=== PATIENT | male | born 1960 | race Caucasian/White ===

== ENCOUNTER 2022-01-09 09:17 | Inpatient (IN) ==
[2022-01-09] MEDS ORDERED: Ipratropium/Albuterol Neb 3 ML IH SCH (18:00)
[2022-01-09] MEDS: Doxycycline 100 MG CAPSULE PO SCH (21:27)
[2022-01-09] MEDS: Lactulose Oral Soln 20 GM/30 ML UDC PO SCH (21:27)
[2022-01-09] MEDS: polyethylene glycoL 3350 17 GM POWD.PACK PO SCH (21:29)
[2022-01-09] MEDS: Ipratropium/Albuterol Neb 3 ML IH SCH (21:31)
[2022-01-10] MEDS: Ipratropium/Albuterol Neb 3 ML IH SCH ×4 (03:57→21:23)
[2022-01-10 05:25] LABS: Basophils % 0.2 %; Eosinophils % 0.1 %; Hematocrit 30.5 % (37.5-50.1); Hemoglobin 10.6 g/dL (12.9-16.9); Immature Granulocytes % 1.2 % (0-4); Lymphocytes % 7.1 %; Mean Corpuscular HGB Conc 34.8 g/dL (31.6-35.5); Mean Corpuscular Hemoglobin 35.2 pg (28.0-33.3); Mean Corpuscular Volume 101.3 fL (83.0-100.0); Mean Platelet Volume 12.2 fL (9.4-12.4); Monocytes # 1.2 K/mcL (0.0-1.3); Monocytes % 8.2 %; Red Blood Count 3.01 M/mcL (4.19-5.50); Red Cell Distribution Width 15.9 % (11.5-14.5); Segmented Neutrophils % 83.2 %; White Blood Count 14.4 K/mcL (4.3-11.1)
[2022-01-10 05:38] LABS: BUN/Creatinine Ratio 34 (6-26); Blood Urea Nitrogen 22 mg/dL (8-23); Calcium 9.4 mg/dL (8.6-10.3); Carbon Dioxide 34 mEq/L (23-29); Chloride 98 mEq/L (98-107); Glucose 136 mg/dL (70-105); Osmolality,Calculated 277 (280-300); Potassium 5.1 mEq/L (3.5-5.1); Sodium 131 mEq/L (136-145)
[2022-01-10 05:44] LABS: Platelet Count 66 K/mcL (140-400)
[2022-01-10] MEDS: *HR* Enoxaparin 40 MG/0.4 ML SYRINGE SQ SCH (05:52)
[2022-01-10] MEDS: Nicotine 21 MG PATCH.TD24 TD SCH (08:54)
[2022-01-10] MEDS: polyethylene glycoL 3350 17 GM POWD.PACK PO SCH ×2 (08:54→22:00)
[2022-01-10] MEDS: Aspirin Enteric Coated 81 MG Tablet PO SCH (08:55)
[2022-01-10] MEDS: Furosemide 20 MG TABLET PO SCH (08:55)
[2022-01-10] MEDS: Lactulose Oral Soln 20 GM/30 ML UDC PO SCH ×3 (08:55→22:00)
[2022-01-10] MEDS: Doxycycline 100 MG CAPSULE PO SCH ×2 (08:55→22:00)
[2022-01-10] MEDS: methylPREDNISolone 4 MG TABLET PO SCH (08:56)
[2022-01-10] MEDS ORDERED: Metoprolol XL (24 HR) Succ 25 MG TAB.ER.24H PO SCH (09:00)
[2022-01-10 17:15] LABS: Bilirubin,Urine Small (Negative); Blood,Urine Large (Negative); Clarity,Urine Cloudy (Clear); Color,Urine Red (Yellow); Glucose,Urine (UA) Normal (Normal); Ketones,Urine Negative (Negative); Leukocyte Esterase,Urine Negative (Negative); Nitrite,Urine Negative (Negative); Protein,Urine 100 mg/dL (Neg-Trace)
[2022-01-10 17:19] LABS: RBC,Urine TNTC per hpf (0-3)
[2022-01-10 17:20] LABS: Bacteria,Urine Few per hpf (None-Few); WBC,Urine 15-30 per hpf (0-3)
[2022-01-11] MEDS: Ipratropium/Albuterol Neb 3 ML IH SCH ×4 (03:46→21:39)
[2022-01-11 06:08] LABS: Basophils % 0.1 %; Eosinophils % 0.1 %; Hematocrit 30.3 % (37.5-50.1); Hemoglobin 10.5 g/dL (12.9-16.9); Immature Granulocytes % 1.5 % (0-4); Lymphocytes % 6.9 %; Mean Corpuscular HGB Conc 34.7 g/dL (31.6-35.5); Mean Corpuscular Hemoglobin 35.4 pg (28.0-33.3); Mean Platelet Volume 12.9 fL (9.4-12.4); Monocytes # 1.2 K/mcL (0.0-1.3); Monocytes % 8.1 %; Neutrophils # 12.6 K/mcL (1.6-8.9); Red Blood Count 2.97 M/mcL (4.19-5.50); Red Cell Distribution Width 16.1 % (11.5-14.5); Segmented Neutrophils % 83.3 %; White Blood Count 15.1 K/mcL (4.3-11.1)
[2022-01-11 06:14] LABS: INR 2.2; Prothrombin Time 23.9 Seconds (9.4-12.1)
[2022-01-11 06:28] LABS: Alanine Aminotransferase 48 Units/L (7-52); Albumin 2.4 g/dL (3.5-5.7); Albumin/Globulin Ratio 0.9 (1.1-2.2); Alkaline Phosphatase 166 Units/L (34-104); Aspartate Amino Transferase 53 Units/L (13-39); BUN/Creatinine Ratio 29 (6-26); Bilirubin,Total 9.1 mg/dL (0.3-1.0); Blood Urea Nitrogen 22 mg/dL (8-23); Calcium 9.2 mg/dL (8.6-10.3); Carbon Dioxide 36 mEq/L (23-29); Chloride 94 mEq/L (98-107); Globulin 2.8 g/dL (2.4-3.5); Glucose 158 mg/dL (70-105); Osmolality,Calculated 273 (280-300); Potassium 4.7 mEq/L (3.5-5.1); Sodium 128 mEq/L (136-145); Total Protein 5.2 g/dL (6.4-8.9)
[2022-01-11 07:13] LABS: Platelet Count 74 K/mcL (140-400)
[2022-01-11] MEDS: *HR* Enoxaparin 40 MG/0.4 ML SYRINGE SQ SCH (07:27)
[2022-01-11 09:02] LABS: Platelet Estimate Decreased (Normal)
[2022-01-11] MEDS: methylPREDNISolone 4 MG TABLET PO SCH (10:46)
[2022-01-11] MEDS: Doxycycline 100 MG CAPSULE PO SCH ×2 (10:47→22:03)
[2022-01-11] MEDS: Lactulose Oral Soln 20 GM/30 ML UDC PO SCH ×3 (10:48→22:03)
[2022-01-11] MEDS: Aspirin Enteric Coated 81 MG Tablet PO SCH (10:48)
[2022-01-11] MEDS: Furosemide 20 MG TABLET PO SCH (10:48)
[2022-01-11] MEDS: polyethylene glycoL 3350 17 GM POWD.PACK PO SCH ×2 (10:49→22:04)
[2022-01-11] MEDS: Nicotine 21 MG PATCH.TD24 TD SCH (10:49)
[2022-01-12] MEDS: Ipratropium/Albuterol Neb 3 ML IH SCH ×4 (03:32→21:34)
[2022-01-12] MEDS: *HR* Enoxaparin 40 MG/0.4 ML SYRINGE SQ SCH (05:57)
[2022-01-12] MEDS: Nicotine 21 MG PATCH.TD24 TD SCH (09:50)
[2022-01-12] MEDS: polyethylene glycoL 3350 17 GM POWD.PACK PO SCH ×2 (09:50→21:28)
[2022-01-12] MEDS: Lactulose Oral Soln 20 GM/30 ML UDC PO SCH ×3 (09:51→21:28)
[2022-01-12] MEDS: Aspirin Enteric Coated 81 MG Tablet PO SCH (09:56)
[2022-01-12] MEDS: Doxycycline 100 MG CAPSULE PO SCH ×2 (09:56→21:28)
[2022-01-12] MEDS: Furosemide 20 MG TABLET PO SCH (09:57)
[2022-01-12] MEDS: methylPREDNISolone 4 MG TABLET PO SCH (17:04)
[2022-01-13] MEDS: Ipratropium/Albuterol Neb 3 ML IH SCH ×4 (03:27→20:03)
[2022-01-13 05:01] LABS: Basophils % 0.3 %; Hematocrit 30.1 % (37.5-50.1); Hemoglobin 10.7 g/dL (12.9-16.9); Immature Granulocytes % 3.6 % (0-4); Lymphocytes # 0.7 K/mcL (0.6-4.6); Lymphocytes % 5.7 %; Mean Corpuscular HGB Conc 35.5 g/dL (31.6-35.5); Mean Corpuscular Volume 101.3 fL (83.0-100.0); Mean Platelet Volume 13.1 fL (9.4-12.4); Monocytes # 0.6 K/mcL (0.0-1.3); Monocytes % 4.9 %; Neutrophils # 9.9 K/mcL (1.6-8.9); Red Blood Count 2.97 M/mcL (4.19-5.50); Red Cell Distribution Width 16.8 % (11.5-14.5); Segmented Neutrophils % 85.5 %; White Blood Count 11.6 K/mcL (4.3-11.1)
[2022-01-13 05:10] LABS: Platelet Count 95 K/mcL (140-400)
[2022-01-13 05:11] LABS: Platelet Estimate Decreased (Normal)
[2022-01-13 05:13] LABS: BUN/Creatinine Ratio 38 (6-26); Blood Urea Nitrogen 30 mg/dL (8-23); Carbon Dioxide 35 mEq/L (23-29); Chloride 96 mEq/L (98-107); Glucose 176 mg/dL (70-105); Osmolality,Calculated 282 (280-300); Potassium 4.7 mEq/L (3.5-5.1); Sodium 131 mEq/L (136-145)
[2022-01-13] MEDS: Furosemide 20 MG TABLET PO SCH (08:11)
[2022-01-13] MEDS: Aspirin Enteric Coated 81 MG Tablet PO SCH (08:12)
[2022-01-13] MEDS: methylPREDNISolone 4 MG TABLET PO SCH (08:17)
[2022-01-13] MEDS: Lactulose Oral Soln 20 GM/30 ML UDC PO SCH ×3 (08:19→21:05)
[2022-01-13] MEDS: Nicotine 21 MG PATCH.TD24 TD SCH (10:18)
[2022-01-13] MEDS: polyethylene glycoL 3350 17 GM POWD.PACK PO SCH (10:18)
[2022-01-13] MEDS ORDERED: polyethylene glycoL 3350 17 GM POWD.PACK PO PRN (11:21)
[2022-01-13] MEDS: Doxycycline 100 MG CAPSULE PO SCH ×2 (15:16→21:05)
[2022-01-14] MEDS: Ipratropium/Albuterol Neb 3 ML IH SCH ×4 (03:32→20:33)
[2022-01-14] MEDS: Lactulose Oral Soln 20 GM/30 ML UDC PO SCH ×3 (09:52→19:44)
[2022-01-14] MEDS: Aspirin Enteric Coated 81 MG Tablet PO SCH (09:53)
[2022-01-14] MEDS: Furosemide 20 MG TABLET PO SCH (09:53)
[2022-01-14] MEDS: methylPREDNISolone 4 MG TABLET PO SCH (09:54)
[2022-01-14] MEDS: Nicotine 21 MG PATCH.TD24 TD SCH (09:58)
[2022-01-15] MEDS: Ipratropium/Albuterol Neb 3 ML IH SCH ×4 (03:51→20:54)
[2022-01-15] MEDS: Nicotine 21 MG PATCH.TD24 TD SCH (09:31)
[2022-01-15] MEDS: Lactulose Oral Soln 20 GM/30 ML UDC PO SCH ×3 (09:36→19:35)
[2022-01-15] MEDS: Aspirin Enteric Coated 81 MG Tablet PO SCH (09:36)
[2022-01-15] MEDS: Furosemide 20 MG TABLET PO SCH (09:37)
[2022-01-15] MEDS: methylPREDNISolone 4 MG TABLET PO SCH (09:37)
[2022-01-16] MEDS: Ipratropium/Albuterol Neb 3 ML IH SCH ×4 (03:40→20:03)
[2022-01-16 05:31] LABS: Hematocrit 31.4 % (37.5-50.1); Hemoglobin 10.8 g/dL (12.9-16.9); Mean Corpuscular HGB Conc 34.4 g/dL (31.6-35.5); Mean Corpuscular Hemoglobin 35.6 pg (28.0-33.3); Mean Corpuscular Volume 103.6 fL (83.0-100.0); Mean Platelet Volume 12.3 fL (9.4-12.4); Platelet Count 103 K/mcL (140-400); Red Blood Count 3.03 M/mcL (4.19-5.50); Red Cell Distribution Width 17.2 % (11.5-14.5); White Blood Count 13.7 K/mcL (4.3-11.1)
[2022-01-16 05:47] LABS: Alanine Aminotransferase 58 Units/L (7-52); Albumin 2.3 g/dL (3.5-5.7); Albumin/Globulin Ratio 0.9 (1.1-2.2); Alkaline Phosphatase 177 Units/L (34-104); Aspartate Amino Transferase 52 Units/L (13-39); BUN/Creatinine Ratio 32 (6-26); Bilirubin,Total 7.8 mg/dL (0.3-1.0); Blood Urea Nitrogen 26 mg/dL (8-23); Calcium 8.6 mg/dL (8.6-10.3); Carbon Dioxide 32 mEq/L (23-29); Chloride 100 mEq/L (98-107); Globulin 2.6 g/dL (2.4-3.5); Glucose 158 mg/dL (70-105); Magnesium 1.9 mg/dL (1.6-2.6); Osmolality,Calculated 284 (280-300); Potassium 4.3 mEq/L (3.5-5.1); Sodium 133 mEq/L (136-145); Total Protein 4.9 g/dL (6.4-8.9)
[2022-01-16] MEDS: Lactulose Oral Soln 20 GM/30 ML UDC PO SCH ×3 (08:51→20:45)
[2022-01-16] MEDS: Furosemide 20 MG TABLET PO SCH (08:52)
[2022-01-16] MEDS: Nicotine 21 MG PATCH.TD24 TD SCH (08:52)
[2022-01-16] MEDS: methylPREDNISolone 4 MG TABLET PO SCH (08:52)
[2022-01-16] MEDS: Aspirin Enteric Coated 81 MG Tablet PO SCH (08:53)
[2022-01-17] MEDS: Ipratropium/Albuterol Neb 3 ML IH SCH ×3 (03:32→17:30)
[2022-01-17 07:29] VITALS: BP 118/70; PULSE 80; TEMP 97.6
[2022-01-17] MEDS: Lactulose Oral Soln 20 GM/30 ML UDC PO SCH (08:58)
[2022-01-17] MEDS: methylPREDNISolone 4 MG TABLET PO SCH (09:00)
[2022-01-17] MEDS: Aspirin Enteric Coated 81 MG Tablet PO SCH (09:01)
[2022-01-17] MEDS: Nicotine 21 MG PATCH.TD24 TD SCH (09:01)
[2022-01-17] MEDS: Furosemide 20 MG TABLET PO SCH (09:01)
[2022-01-17 10:22] VITALS: RESP 19; O2SAT 95
[2022-01-24] MEDS ORDERED: methylPREDNISolone 4 MG TABLET PO SCH (09:00)
== END 2022-01-17 19:13 | disposition home health service (06) | DRG 432 ==
LOC: INPGRE 15:39
PROVIDERS: ADMIT Family Medicine; ATTEND Family Medicine

== ENCOUNTER 2022-02-10 17:37 | Inpatient (IN) ==
[2022-02-10] MEDS ORDERED: Furosemide 40 MG/4 ML VIAL IVP ONE (17:45)
[2022-02-10] MEDS ORDERED: *HR* Heparin 5,000 UNIT/ML VIAL IVP ONE (17:46)
[2022-02-10] MEDS ORDERED: *HR* Heparin 5,000 UNIT/ML VIAL IVP PRN ×2 (17:46)
[2022-02-10] MEDS ORDERED: Heparin 25,000UNIT/250ML 1/2NS 25,000 UNIT/250 ML IV.SOLN IVC SCH (18:00)
[2022-02-10] MEDS ORDERED: Ipratropium/Albuterol Neb 3 ML IH ONE (18:53)
[2022-02-10 18:55] LABS: Basophils % 0.5 %; Eosinophils # 0.1 K/mcL (0.0-0.6); Eosinophils % 0.9 %; Hematocrit 37.1 % (37.5-50.1); Hemoglobin 12.3 g/dL (12.9-16.9); Immature Granulocytes % 0.7 % (0-4); Lymphocytes # 1.4 K/mcL (0.6-4.6); Lymphocytes % 23.9 %; Mean Corpuscular HGB Conc 33.2 g/dL (31.6-35.5); Mean Corpuscular Hemoglobin 36.1 pg (28.0-33.3); Mean Corpuscular Volume 108.8 fL (83.0-100.0); Mean Platelet Volume 11.2 fL (9.4-12.4); Monocytes # 0.7 K/mcL (0.0-1.3); Neutrophils # 3.6 K/mcL (1.6-8.9); Red Blood Count 3.41 M/mcL (4.19-5.50); Red Cell Distribution Width 14.1 % (11.5-14.5); White Blood Count 5.9 K/mcL (4.3-11.1)
[2022-02-10 19:01] LABS: Platelet Count 53 K/mcL (140-400)
[2022-02-10 19:02] LABS: Platelet Estimate Decreased (Normal)
[2022-02-10 19:14] LABS: Alanine Aminotransferase 52 Units/L (7-52); Albumin 2.8 g/dL (3.5-5.7); Albumin/Globulin Ratio 1.3 (1.1-2.2); Alkaline Phosphatase 165 Units/L (34-104); Aspartate Amino Transferase 55 Units/L (13-39); BUN/Creatinine Ratio 25 (6-26); Bilirubin,Total 9.2 mg/dL (0.3-1.0); Blood Urea Nitrogen 17 mg/dL (8-23); Calcium 8.6 mg/dL (8.6-10.3); Carbon Dioxide 45 mEq/L (23-29); Chloride 88 mEq/L (98-107); Globulin 2.1 g/dL (2.4-3.5); Glucose 187 mg/dL (70-105); Osmolality,Calculated 280 (280-300); Potassium 5.3 mEq/L (3.5-5.1); Sodium 132 mEq/L (136-145); Total Protein 4.9 g/dL (6.4-8.9)
[2022-02-10] MEDS ORDERED: Melatonin 3 MG TABLET PO PRN (21:22)
[2022-02-10] MEDS ORDERED: Acetaminophen 325 MG TABLET PO PRN (21:22)
[2022-02-10] MEDS ORDERED: Ondansetron ODT 4 MG TAB.RAPDIS SL PRN (21:22)
[2022-02-10] MEDS ORDERED: Naloxone 0.4 MG/ML INJ IVP PRN (21:22)
[2022-02-10] MEDS ORDERED: *HR* LORazepam 0.5 MG TABLET PO ONE (21:29)
[2022-02-11] MEDS: Ipratropium/Albuterol Neb 3 ML IH SCH ×7 (00:25→23:15)
[2022-02-11 05:01] LABS: Basophils # 0.1 K/mcL (0.0-0.2); Basophils % 0.8 %; Eosinophils # 0.1 K/mcL (0.0-0.6); Eosinophils % 1.6 %; Hematocrit 36.7 % (37.5-50.1); Immature Granulocytes % 0.5 % (0-4); Lymphocytes # 2.2 K/mcL (0.6-4.6); Mean Corpuscular HGB Conc 32.7 g/dL (31.6-35.5); Mean Corpuscular Hemoglobin 35.2 pg (28.0-33.3); Mean Corpuscular Volume 107.6 fL (83.0-100.0); Mean Platelet Volume 11.2 fL (9.4-12.4); Monocytes # 1.1 K/mcL (0.0-1.3); Monocytes % 14.4 %; Red Blood Count 3.41 M/mcL (4.19-5.50); Red Cell Distribution Width 14.2 % (11.5-14.5); Segmented Neutrophils % 53.7 %; White Blood Count 7.5 K/mcL (4.3-11.1)
[2022-02-11 05:04] LABS: Prothrombin Time 22.2 Seconds (9.4-12.1)
[2022-02-11 05:09] LABS: Platelet Count 53 K/mcL (140-400); Platelet Estimate Decreased (Normal)
[2022-02-11 05:13] LABS: VBG HCO3 37 mEq/L (21-27); VBG PCO2 61 mmHg (41-51); VBG PH 7.39 pH Units (7.32-7.42); VBG PO2 40 mmHg (25-50)
[2022-02-11 05:19] LABS: Alanine Aminotransferase 49 Units/L (7-52); Albumin 2.7 g/dL (3.5-5.7); Albumin/Globulin Ratio 1.4 (1.1-2.2); Alkaline Phosphatase 167 Units/L (34-104); Aspartate Amino Transferase 43 Units/L (13-39); BUN/Creatinine Ratio 26 (6-26); Bilirubin,Total 8.7 mg/dL (0.3-1.0); Blood Urea Nitrogen 18 mg/dL (8-23); Calcium 8.8 mg/dL (8.6-10.3); Carbon Dioxide 45 mEq/L (23-29); Chloride 89 mEq/L (98-107); Glucose 139 mg/dL (70-105); Magnesium 1.7 mg/dL (1.6-2.6); Osmolality,Calculated 282 (280-300); Potassium 5.2 mEq/L (3.5-5.1); Sodium 134 mEq/L (136-145); Total Protein 4.7 g/dL (6.4-8.9)
[2022-02-11] MEDS ORDERED: Insulin Human Regular 10 UNIT in 0.9 % Sodium Chloride 10 ML IV ONE (07:04)
[2022-02-11] MEDS ORDERED: Calcium Gluconate 1gm/50mL 1 GM/50 ML BAG IVPB ONE (07:04)
[2022-02-11] MEDS ORDERED: *HR* Dextrose 50 % in Water (Syg) 50 ML SYRINGE IVP ONE (07:05)
[2022-02-11] MEDS: Budesonide/Formoterol 160/4.5 1 PUFF INH IH SCH ×2 (08:05→20:22)
[2022-02-11] MEDS: Lactulose Oral Soln 20 GM/30 ML UDC PO SCH ×3 (08:53→20:02)
[2022-02-11] MEDS ORDERED: Furosemide 20 MG TABLET PO SCH (09:00)
[2022-02-11] MEDS: Aspirin Enteric Coated 81 MG Tablet PO SCH (09:04)
[2022-02-11] MEDS: SODIUM ZIRCONIUM CYCLOSILICATE 5 GM POWD.PACK PO SCH ×2 (09:06→14:33)
[2022-02-11] MEDS: Chlorhexidine Rinse 15 ML MOUTHWASH MM SCH ×2 (09:07→19:59)
[2022-02-11] MEDS: Vitamin B Complex/Vit C/Vit E 1 EACH TABLET PO SCH (09:08)
[2022-02-11] MEDS: Nicotine 14 MG PATCH.TD24 TD SCH (09:08)
[2022-02-11] MEDS: Furosemide 20 MG TABLET PO SCH (19:59)
[2022-02-12] MEDS: Ipratropium/Albuterol Neb 3 ML IH SCH ×5 (04:24→21:42)
[2022-02-12] MEDS: Budesonide/Formoterol 160/4.5 1 PUFF INH IH SCH ×2 (07:28→21:43)
[2022-02-12 08:51] LABS: Basophils # 0.1 K/mcL (0.0-0.2); Basophils % 0.8 %; Eosinophils # 0.1 K/mcL (0.0-0.6); Eosinophils % 0.8 %; Hematocrit 35.6 % (37.5-50.1); Hemoglobin 11.7 g/dL (12.9-16.9); Immature Granulocytes % 0.5 % (0-4); Lymphocytes # 2.4 K/mcL (0.6-4.6); Lymphocytes % 31.4 %; Mean Corpuscular HGB Conc 32.9 g/dL (31.6-35.5); Mean Corpuscular Hemoglobin 35.7 pg (28.0-33.3); Mean Corpuscular Volume 108.5 fL (83.0-100.0); Mean Platelet Volume 10.6 fL (9.4-12.4); Monocytes # 0.9 K/mcL (0.0-1.3); Monocytes % 11.2 %; Neutrophils # 4.2 K/mcL (1.6-8.9); Red Blood Count 3.28 M/mcL (4.19-5.50); Red Cell Distribution Width 14.7 % (11.5-14.5); Segmented Neutrophils % 55.3 %; White Blood Count 7.6 K/mcL (4.3-11.1)
[2022-02-12 08:53] LABS: Platelet Count 49 K/mcL (140-400)
[2022-02-12] MEDS ORDERED: SODIUM ZIRCONIUM CYCLOSILICATE 5 GM POWD.PACK PO SCH (09:00)
[2022-02-12 09:10] LABS: BUN/Creatinine Ratio 20 (6-26); Blood Urea Nitrogen 18 mg/dL (8-23); Calcium 8.9 mg/dL (8.6-10.3); Carbon Dioxide 41 mEq/L (23-29); Chloride 88 mEq/L (98-107); Glucose 210 mg/dL (70-105); Osmolality,Calculated 286 (280-300); Potassium 3.8 mEq/L (3.5-5.1); Sodium 134 mEq/L (136-145)
[2022-02-12] MEDS: Chlorhexidine Rinse 15 ML MOUTHWASH MM SCH ×2 (11:41→21:21)
[2022-02-12] MEDS: Lactulose Oral Soln 20 GM/30 ML UDC PO SCH ×5 (11:41→21:19)
[2022-02-12] MEDS: acetaZOLAMIDE 250 MG TABLET PO SCH ×2 (11:42→21:19)
[2022-02-12] MEDS: Aspirin Enteric Coated 81 MG Tablet PO SCH (11:43)
[2022-02-12] MEDS: Vitamin B Complex/Vit C/Vit E 1 EACH TABLET PO SCH (11:43)
[2022-02-12] MEDS: Furosemide 20 MG TABLET PO SCH ×2 (11:43→17:54)
[2022-02-12] MEDS: Nicotine 14 MG PATCH.TD24 TD SCH (11:44)
[2022-02-13] MEDS: Ipratropium/Albuterol Neb 3 ML IH SCH ×6 (00:10→19:02)
[2022-02-13 05:53] LABS: Hematocrit 34.1 % (37.5-50.1); Hemoglobin 11.2 g/dL (12.9-16.9); Mean Corpuscular HGB Conc 32.8 g/dL (31.6-35.5); Mean Corpuscular Hemoglobin 35.9 pg (28.0-33.3); Mean Corpuscular Volume 109.3 fL (83.0-100.0); Mean Platelet Volume 11.3 fL (9.4-12.4); Platelet Count 54 K/mcL (140-400); Red Blood Count 3.12 M/mcL (4.19-5.50); Red Cell Distribution Width 14.6 % (11.5-14.5); White Blood Count 8.5 K/mcL (4.3-11.1)
[2022-02-13 06:59] LABS: Alanine Aminotransferase 50 Units/L (7-52); Albumin 2.4 g/dL (3.5-5.7); Albumin/Globulin Ratio 1.2 (1.1-2.2); Alkaline Phosphatase 180 Units/L (34-104); Aspartate Amino Transferase 51 Units/L (13-39); BUN/Creatinine Ratio 20 (6-26); Bilirubin,Total 6.3 mg/dL (0.3-1.0); Blood Urea Nitrogen 18 mg/dL (8-23); Calcium 9.1 mg/dL (8.6-10.3); Carbon Dioxide 42 mEq/L (23-29); Chloride 95 mEq/L (98-107); Glucose 136 mg/dL (70-105); Magnesium 1.8 mg/dL (1.6-2.6); Osmolality,Calculated 290 (280-300); Potassium 4.2 mEq/L (3.5-5.1); Sodium 138 mEq/L (136-145); Total Protein 4.4 g/dL (6.4-8.9)
[2022-02-13] MEDS: Budesonide/Formoterol 160/4.5 1 PUFF INH IH SCH ×2 (07:34→19:04)
[2022-02-13] MEDS: Aspirin Enteric Coated 81 MG Tablet PO SCH (09:26)
[2022-02-13] MEDS: Vitamin B Complex/Vit C/Vit E 1 EACH TABLET PO SCH (09:26)
[2022-02-13] MEDS: Chlorhexidine Rinse 15 ML MOUTHWASH MM SCH ×2 (09:26→21:26)
[2022-02-13] MEDS: Nicotine 14 MG PATCH.TD24 TD SCH (09:27)
[2022-02-13] MEDS: Lactulose Oral Soln 20 GM/30 ML UDC PO SCH ×4 (09:27→21:24)
[2022-02-13] MEDS: Furosemide 20 MG TABLET PO SCH ×2 (09:29→16:35)
[2022-02-13] MEDS: acetaZOLAMIDE 250 MG TABLET PO SCH ×2 (09:29→21:27)
[2022-02-13] MEDS ORDERED: 0.9 % Sodium Chloride 500 ML IVC PRN (20:46)
[2022-02-13] MEDS ORDERED: 0.9 % Sodium Chloride 500 ML IVC SCH (21:00)
[2022-02-13] MEDS ORDERED: 0.9 % Sodium Chloride 500 ML IVC ONE (21:45)
[2022-02-14] MEDS: Ipratropium/Albuterol Neb 3 ML IH SCH ×6 (00:22→22:41)
[2022-02-14 07:14] LABS: Hematocrit 33.7 % (37.5-50.1); Hemoglobin 10.9 g/dL (12.9-16.9); Mean Corpuscular HGB Conc 32.3 g/dL (31.6-35.5); Mean Corpuscular Volume 111.2 fL (83.0-100.0); Mean Platelet Volume 11.4 fL (9.4-12.4); Red Blood Count 3.03 M/mcL (4.19-5.50); Red Cell Distribution Width 14.6 % (11.5-14.5); White Blood Count 8.5 K/mcL (4.3-11.1)
[2022-02-14 07:15] LABS: Platelet Count 51 K/mcL (140-400)
[2022-02-14] MEDS: Budesonide/Formoterol 160/4.5 1 PUFF INH IH SCH ×2 (07:45→22:42)
[2022-02-14] MEDS: Lactulose Oral Soln 20 GM/30 ML UDC PO SCH ×4 (08:08→20:44)
[2022-02-14] MEDS: Aspirin Enteric Coated 81 MG Tablet PO SCH (08:08)
[2022-02-14] MEDS: Vitamin B Complex/Vit C/Vit E 1 EACH TABLET PO SCH (08:09)
[2022-02-14] MEDS: Furosemide 20 MG TABLET PO SCH ×2 (08:09→17:01)
[2022-02-14] MEDS: Nicotine 14 MG PATCH.TD24 TD SCH (08:09)
[2022-02-14] MEDS: acetaZOLAMIDE 250 MG TABLET PO SCH ×2 (08:09→10:43)
[2022-02-14] MEDS: Chlorhexidine Rinse 15 ML MOUTHWASH MM SCH ×2 (08:09→20:45)
[2022-02-14 09:59] LABS: Alanine Aminotransferase 51 Units/L (7-52); Albumin 2.3 g/dL (3.5-5.7); Albumin/Globulin Ratio 1.1 (1.1-2.2); Alkaline Phosphatase 189 Units/L (34-104); Aspartate Amino Transferase 48 Units/L (13-39); BUN/Creatinine Ratio 24 (6-26); Blood Urea Nitrogen 21 mg/dL (8-23); Calcium 8.8 mg/dL (8.6-10.3); Carbon Dioxide 40 mEq/L (23-29); Chloride 98 mEq/L (98-107); Globulin 2.1 g/dL (2.4-3.5); Glucose 152 mg/dL (70-105); Magnesium 1.8 mg/dL (1.6-2.6); Osmolality,Calculated 298 (280-300); Potassium 4.4 mEq/L (3.5-5.1); Sodium 141 mEq/L (136-145); Total Protein 4.4 g/dL (6.4-8.9)
[2022-02-14 15:42] LABS: Bilirubin,Urine Small (Negative); Blood,Urine Negative (Negative); Clarity,Urine Clear (Clear); Color,Urine Orange (Yellow); Glucose,Urine (UA) Normal (Normal); Ketones,Urine Trace mg/dL (Negative); Leukocyte Esterase,Urine Negative (Negative); Nitrite,Urine Negative (Negative); Protein,Urine Trace mg/dL (Neg-Trace); Specific Gravity,Urine 1.025 (1.010-1.025)
[2022-02-14 16:24] LABS: Amorphous Sediment,Urine Moderate per hpf (None-Few); Bacteria,Urine Many per hpf (None-Few); WBC,Urine 15-30 per hpf (0-3)
[2022-02-14 17:02] LABS: Basophils # 0.1 K/mcL (0.0-0.2); Basophils % 0.7 %; Eosinophils # 0.1 K/mcL (0.0-0.6); Eosinophils % 1.1 %; Hemoglobin 10.4 g/dL (12.9-16.9); Immature Granulocytes % 0.6 % (0-4); Lymphocytes # 1.7 K/mcL (0.6-4.6); Lymphocytes % 20.9 %; Mean Corpuscular HGB Conc 31.5 g/dL (31.6-35.5); Mean Corpuscular Hemoglobin 35.5 pg (28.0-33.3); Mean Corpuscular Volume 112.6 fL (83.0-100.0); Mean Platelet Volume 11.4 fL (9.4-12.4); Monocytes # 1.2 K/mcL (0.0-1.3); Monocytes % 14.2 %; Neutrophils # 5.2 K/mcL (1.6-8.9); Red Blood Count 2.93 M/mcL (4.19-5.50); Red Cell Distribution Width 14.8 % (11.5-14.5); Segmented Neutrophils % 62.5 %; White Blood Count 8.3 K/mcL (4.3-11.1)
[2022-02-14 17:05] LABS: Platelet Count 54 K/mcL (140-400)
[2022-02-14 17:28] LABS: Calcium 8.9 mg/dL (8.6-10.3); Potassium 3.9 mEq/L (3.5-5.1)
[2022-02-14] MEDS: 0.9 % Sodium Chloride 1,000 ML IVC SCH (17:49)
[2022-02-14 18:56] LABS: ABG Base Excess 11 mEq/L (-2 to 3); ABG HCO3 42 mEq/L (21-27); ABG Oxygen Saturation 96 % (95-98); ABG PCO2 96 mmHg (35-45); ABG PH 7.25 pH Units (7.32-7.45); ABG PO2 101 mmHg (85-104); ABG TCO2 45 mEq/L (20-26)
[2022-02-15] MEDS: Lactulose Oral Soln 20 GM/30 ML UDC PO SCH ×6 (00:16→20:27)
[2022-02-15] MEDS: 0.9 % Sodium Chloride 1,000 ML IVC SCH (03:58)
[2022-02-15] MEDS: Ipratropium/Albuterol Neb 3 ML IH SCH ×4 (05:14→19:49)
[2022-02-15 07:36] LABS: Basophils # 0.1 K/mcL (0.0-0.2); Basophils % 0.8 %; Eosinophils # 0.1 K/mcL (0.0-0.6); Eosinophils % 1.7 %; Hematocrit 35.5 % (37.5-50.1); Hemoglobin 11.5 g/dL (12.9-16.9); Immature Granulocytes % 0.8 % (0-4); Lymphocytes # 1.2 K/mcL (0.6-4.6); Lymphocytes % 19.1 %; Mean Corpuscular HGB Conc 32.4 g/dL (31.6-35.5); Mean Corpuscular Hemoglobin 35.9 pg (28.0-33.3); Mean Corpuscular Volume 110.9 fL (83.0-100.0); Mean Platelet Volume 11.2 fL (9.4-12.4); Monocytes # 0.9 K/mcL (0.0-1.3); Monocytes % 14.8 %; Neutrophils # 3.8 K/mcL (1.6-8.9); Red Cell Distribution Width 14.6 % (11.5-14.5); Segmented Neutrophils % 62.8 %
[2022-02-15 08:04] LABS: Platelet Count 54 K/mcL (140-400)
[2022-02-15 08:08] LABS: Albumin 2.6 g/dL (3.5-5.7); Albumin/Globulin Ratio 1.2 (1.1-2.2); Bilirubin,Total 6.7 mg/dL (0.3-1.0); Globulin 2.2 g/dL (2.4-3.5); Magnesium 1.9 mg/dL (1.6-2.6); Potassium 4.1 mEq/L (3.5-5.1); Total Protein 4.8 g/dL (6.4-8.9)
[2022-02-15 09:44] LABS: Basophilic Stippling 1+ (Not Present); Platelet Estimate Decreased (Normal)
[2022-02-15] MEDS: Vitamin B Complex/Vit C/Vit E 1 EACH TABLET PO SCH (10:09)
[2022-02-15] MEDS: Chlorhexidine Rinse 15 ML MOUTHWASH MM SCH ×2 (10:09→20:28)
[2022-02-15] MEDS: Nicotine 14 MG PATCH.TD24 TD SCH ×2 (10:09→10:15)
[2022-02-15] MEDS: Aspirin Enteric Coated 81 MG Tablet PO SCH (10:09)
[2022-02-15] MEDS: Budesonide/Formoterol 160/4.5 1 PUFF INH IH SCH ×2 (11:56→19:49)
[2022-02-15] MEDS: levoFLOXacin 500 MG TABLET PO SCH (13:18)
[2022-02-15 15:03] LABS: ABG Base Excess 6 mEq/L (-2 to 3); ABG HCO3 35 mEq/L (21-27); ABG Oxygen Saturation 91 % (95-98); ABG PCO2 71 mmHg (35-45); ABG PO2 71 mmHg (85-104); ABG TCO2 37 mEq/L (20-26)
[2022-02-15] MEDS: acetaZOLAMIDE 250 MG TABLET PO SCH (20:27)
[2022-02-16] MEDS: Lactulose Oral Soln 20 GM/30 ML UDC PO SCH ×6 (00:36→20:46)
[2022-02-16] MEDS: Ipratropium/Albuterol Neb 3 ML IH SCH ×4 (04:16→21:31)
[2022-02-16 04:33] LABS: Hemoglobin 10.8 g/dL (12.9-16.9); Mean Corpuscular HGB Conc 32.7 g/dL (31.6-35.5); Mean Corpuscular Hemoglobin 35.6 pg (28.0-33.3); Mean Corpuscular Volume 108.9 fL (83.0-100.0); Mean Platelet Volume 10.3 fL (9.4-12.4); Red Blood Count 3.03 M/mcL (4.19-5.50); Red Cell Distribution Width 14.7 % (11.5-14.5)
[2022-02-16 04:52] LABS: Albumin 2.4 g/dL (3.5-5.7); Albumin/Globulin Ratio 1.2 (1.1-2.2); Bilirubin,Total 6.4 mg/dL (0.3-1.0); Calcium 8.8 mg/dL (8.6-10.3); Magnesium 1.9 mg/dL (1.6-2.6); Potassium 3.8 mEq/L (3.5-5.1); Total Protein 4.4 g/dL (6.4-8.9)
[2022-02-16 05:01] LABS: Platelet Count 53 K/mcL (140-400)
[2022-02-16] MEDS: Budesonide/Formoterol 160/4.5 1 PUFF INH IH SCH ×2 (08:04→21:34)
[2022-02-16] MEDS: Aspirin Enteric Coated 81 MG Tablet PO SCH (08:14)
[2022-02-16] MEDS: acetaZOLAMIDE 250 MG TABLET PO SCH ×2 (08:14→20:46)
[2022-02-16] MEDS: Vitamin B Complex/Vit C/Vit E 1 EACH TABLET PO SCH (08:14)
[2022-02-16] MEDS: levoFLOXacin 500 MG TABLET PO SCH (08:14)
[2022-02-16] MEDS: Nicotine 14 MG PATCH.TD24 TD SCH (08:16)
[2022-02-16] MEDS: Chlorhexidine Rinse 15 ML MOUTHWASH MM SCH ×2 (08:16→20:46)
[2022-02-17] MEDS: Lactulose Oral Soln 20 GM/30 ML UDC PO SCH ×8 (00:33→23:59)
[2022-02-17] MEDS: Ipratropium/Albuterol Neb 3 ML IH SCH ×4 (04:08→21:12)
[2022-02-17 05:05] LABS: Hematocrit 34.8 % (37.5-50.1); Hemoglobin 11.2 g/dL (12.9-16.9); Mean Corpuscular HGB Conc 32.2 g/dL (31.6-35.5); Mean Corpuscular Hemoglobin 35.3 pg (28.0-33.3); Mean Corpuscular Volume 109.8 fL (83.0-100.0); Mean Platelet Volume 11.5 fL (9.4-12.4); Red Blood Count 3.17 M/mcL (4.19-5.50); Red Cell Distribution Width 14.9 % (11.5-14.5); White Blood Count 5.5 K/mcL (4.3-11.1)
[2022-02-17 05:08] LABS: Platelet Count 50 K/mcL (140-400)
[2022-02-17 05:21] LABS: Albumin 2.4 g/dL (3.5-5.7); Albumin/Globulin Ratio 1.1 (1.1-2.2); Bilirubin,Total 5.3 mg/dL (0.3-1.0); Calcium 9.2 mg/dL (8.6-10.3); Globulin 2.2 g/dL (2.4-3.5); Potassium 3.8 mEq/L (3.5-5.1); Total Protein 4.6 g/dL (6.4-8.9)
[2022-02-17] MEDS: Budesonide/Formoterol 160/4.5 1 PUFF INH IH SCH ×2 (09:15→21:12)
[2022-02-17] MEDS: Vitamin B Complex/Vit C/Vit E 1 EACH TABLET PO SCH (09:21)
[2022-02-17] MEDS: acetaZOLAMIDE 250 MG TABLET PO SCH ×2 (09:21→21:09)
[2022-02-17] MEDS: Aspirin Enteric Coated 81 MG Tablet PO SCH (09:22)
[2022-02-17] MEDS: levoFLOXacin 500 MG TABLET PO SCH (09:22)
[2022-02-17] MEDS: Nicotine 14 MG PATCH.TD24 TD SCH (09:23)
[2022-02-17] MEDS: Chlorhexidine Rinse 15 ML MOUTHWASH MM SCH ×2 (09:23→21:09)
[2022-02-17] MEDS ORDERED: Fosfomycin Tromethamine 3 GM Packet PO ONE (13:00)
[2022-02-17] MEDS: Nitrofurantoin (BID) 100 MG CAPSULE PO SCH (17:33)
[2022-02-18] MEDS: Ipratropium/Albuterol Neb 3 ML IH SCH ×4 (04:10→19:09)
[2022-02-18] MEDS: Lactulose Oral Soln 20 GM/30 ML UDC PO SCH ×5 (05:35→19:46)
[2022-02-18] MEDS: Chlorhexidine Rinse 15 ML MOUTHWASH MM SCH ×2 (08:39→19:47)
[2022-02-18] MEDS: Aspirin Enteric Coated 81 MG Tablet PO SCH (08:40)
[2022-02-18] MEDS: Nitrofurantoin (BID) 100 MG CAPSULE PO SCH ×2 (08:40→16:32)
[2022-02-18] MEDS: acetaZOLAMIDE 250 MG TABLET PO SCH ×2 (08:41→19:46)
[2022-02-18] MEDS: Vitamin B Complex/Vit C/Vit E 1 EACH TABLET PO SCH (08:41)
[2022-02-18] MEDS: Nicotine 14 MG PATCH.TD24 TD SCH (08:52)
[2022-02-18] MEDS: Budesonide/Formoterol 160/4.5 1 PUFF INH IH SCH ×2 (10:09→20:46)
[2022-02-18] MEDS: Furosemide 40 MG TABLET PO SCH ×2 (15:21→16:33)
[2022-02-18] MEDS ORDERED: Albuterol 2.5 MG/3 ML NEBULIZER IH PRN (19:01)
[2022-02-19] MEDS: Lactulose Oral Soln 20 GM/30 ML UDC PO SCH ×6 (00:34→23:59)
[2022-02-19] MEDS: Ipratropium/Albuterol Neb 3 ML IH SCH ×4 (03:11→21:17)
[2022-02-19 05:11] LABS: Hematocrit 34.9 % (37.5-50.1); Hemoglobin 11.3 g/dL (12.9-16.9); Mean Corpuscular HGB Conc 32.4 g/dL (31.6-35.5); Mean Corpuscular Hemoglobin 35.3 pg (28.0-33.3); Mean Corpuscular Volume 109.1 fL (83.0-100.0); Mean Platelet Volume 11.7 fL (9.4-12.4); Red Cell Distribution Width 14.9 % (11.5-14.5); White Blood Count 6.6 K/mcL (4.3-11.1)
[2022-02-19 05:13] LABS: Platelet Count 41 K/mcL (140-400)
[2022-02-19 05:24] LABS: Albumin 2.3 g/dL (3.5-5.7); Albumin/Globulin Ratio 1.1 (1.1-2.2); Bilirubin,Total 4.5 mg/dL (0.3-1.0); Calcium 8.9 mg/dL (8.6-10.3); Globulin 2.1 g/dL (2.4-3.5); Magnesium 1.7 mg/dL (1.6-2.6); Potassium 3.8 mEq/L (3.5-5.1); Total Protein 4.4 g/dL (6.4-8.9)
[2022-02-19] MEDS: Spironolactone 25 MG TABLET PO SCH (08:47)
[2022-02-19] MEDS: Furosemide 40 MG TABLET PO SCH ×2 (08:47→17:46)
[2022-02-19] MEDS: Vitamin B Complex/Vit C/Vit E 1 EACH TABLET PO SCH (08:47)
[2022-02-19] MEDS: Nitrofurantoin (BID) 100 MG CAPSULE PO SCH ×2 (08:47→17:46)
[2022-02-19] MEDS: Chlorhexidine Rinse 15 ML MOUTHWASH MM SCH ×2 (08:48→22:20)
[2022-02-19] MEDS: Nicotine 14 MG PATCH.TD24 TD SCH (08:48)
[2022-02-19] MEDS: acetaZOLAMIDE 250 MG TABLET PO SCH ×2 (08:48→22:20)
[2022-02-19] MEDS: Aspirin Enteric Coated 81 MG Tablet PO SCH (08:53)
[2022-02-19] MEDS: Budesonide/Formoterol 160/4.5 1 PUFF INH IH SCH ×2 (10:55→21:17)
[2022-02-20] MEDS: Ipratropium/Albuterol Neb 3 ML IH SCH ×2 (03:41→11:25)
[2022-02-20] MEDS: Lactulose Oral Soln 20 GM/30 ML UDC PO SCH ×2 (04:11→12:28)
[2022-02-20] MEDS: Chlorhexidine Rinse 15 ML MOUTHWASH MM SCH (08:25)
[2022-02-20] MEDS: Vitamin B Complex/Vit C/Vit E 1 EACH TABLET PO SCH (08:25)
[2022-02-20] MEDS: Nitrofurantoin (BID) 100 MG CAPSULE PO SCH (08:25)
[2022-02-20] MEDS: acetaZOLAMIDE 250 MG TABLET PO SCH (08:25)
[2022-02-20] MEDS: Spironolactone 25 MG TABLET PO SCH (08:26)
[2022-02-20] MEDS: Furosemide 40 MG TABLET PO SCH (08:26)
[2022-02-20] MEDS: Budesonide/Formoterol 160/4.5 1 PUFF INH IH SCH (11:28)
[2022-02-20 16:27] VITALS: BP 95/57; PULSE 78; RESP 18; TEMP 97.2; O2SAT 93
== END 2022-02-20 16:30 | DRG 640 ==
LOC: INPGRE 17:37 → EMEROOGRE 17:37 → SUATTDRO 20:53 → INPGRE 21:20
PROVIDERS: ADMIT Internal Medicine; ATTEND Family Medicine